=== PATIENT | female | born 1930 | race Caucasian/White ===

== ENCOUNTER → 2016-03-18 | Outpatient (CLI) | payer MEDICARE, BC ==
[~2016-03-18] VITALS: Ht 152.4 cm; Wt 77.6 kg
[~2016-03-18] MED LIST: AGGRENOX ER 251 CER PO; ALLERGY RELIEF10 MG PO; ASPI325T6 PO; ASPIRIN E.C. 8181 MG PO; CALCIUM600 M1 PO; CATAPRES0.2 MG PO; CLONIDINE0.1 MG PO; CO Q-10 100 MG-1 SGL PO; CRESTOR 10MG10 MG PO; CRESTOR20 MG PO; CRESTOR40 MG PO; FISH OIL 1000MG1 CAP PO; FISH OIL O1600 MG/5 PO; FISH OIL PO; FUROSEMIDE20 MG PO; GARLIC SUPPLEM300 MG PO; GARLIQUE PO; ISOPTO TEARS OU; K-LOR CON PO; K-TAB20 PO; KLOR-CON M2020 MEQ PO; LEVEMIR100 U/ML SC; LISINOPRIL20 MG PO; LOPRESSOR100 MG PO; MAGNESIUM500 MG PO; METAMUCIL1 PDR PO; METOPROLOL PO; MUCINEX 60600 MG/TA1 PO; MULTIPLE VITAMI1 CAP PO; NASONEX SPRAY17 GM NS; NASONEX0.05 MG/AC NS; NEURONTIN100 MG/CAP PO; NIFEDIPINE90 MG PO; NITROQUICK0.4 MG SL; NOVOLOG; NOVOLOG FLEX100 U/ML SQ; PLAVIX 75MG TAB75 MG PO; PRINIVIL40 MG PO; PROBIOTIC FORMU1 CAP PO; RANEXA 500MG T500 MG PO; REFRESH 1 ML1 ML; SYNTHROID0.1 MG PO; TYLENOL W/COD1 UDTAB PO; VITAMIN C BUFF500 MG PO; VITAMIN C500 MG PO; VITAMIN D1000 IU PO; VITAMIN D31000 IU PO; VITAMIN D32000 I1 PO; [UNRECOGNIZED DRUG - OTHER] PO; [UNRECOGNIZED DRUG - REMARK] PO
[2016-03-18 11:07] VITALS: BP 142/52; PULSE 80
[2016-03-18 11:37] VITALS: BP 142/52; PULSE 80
== END ==
LOC: LIGHT 11:05
DX: E11.9 Type 2 diabetes mellitus without complications (principal); E78.4 Other hyperlipidemia; E66.09 Other obesity due to excess calories; Z68.33 Body mass index [BMI] 33.0-33.9, adult; I10 Essential (primary) hypertension

== ENCOUNTER 2016-04-02 12:07 | Inpatient (IN) | payer MEDICARE, BC ==
[~2016-04-02] VITALS: Ht 152.4 cm; Wt 78.4 kg
[~2016-04-02 12:07] MED LIST changes: -AGGRENOX ER 251 CER PO; -ASPI325T6 PO; -RANEXA 500MG T500 MG PO
[2016-04-02 12:45] LABS: BASO # 0.1 (0.0-0.2); BASO % 0.4 % (0.0-2.0); EOS # 0.2 (0.0-0.7); EOS % 1.8 % (0-4.0); GRAN # 10.6 (1.4-6.5); GRAN % 83.8 % (42.2-75.2); HEMATOCRIT 40.3 % (37.0-47.0); HEMOGLOBIN 13.7 g/dl (12.5-16.0); LYMPH # 1.2 (1.2-3.4); LYMPH % 9.3 % (20.0-51.0); MEAN CELL VOLUME 84 fl (80.0-100.0); MEAN CORPUSCULAR HEMOGLOBIN 28 pg (27.0-31.0); MEAN CORPUSCULAR HGB CONC 34 g/dl (33.0-37.0); MEAN PLATELET VOLUME 9.9 fl (7.4-10.4); MONO # 0.6 (0.1-0.6); MONO % 4.4 % (1.7-9.3); PLATELET COUNT 263 K/mm3 (130-400); RED BLOOD COUNT 4.82 M/mm3 (4.10-5.30); REDCELL DISTRIBUTION WIDTH-CV 14.6 % (11.5-14.5); WHITE BLOOD COUNT 12.6 K/mm3 (4.8-10.8)
[2016-04-02 12:58] LABS: ANION GAP 12 mmol/L (7-16); BLOOD UREA NITROGEN 20 mg/dL (7-17); CALCIUM 9.8 mg/dL (8.4-10.2); CARBON DIOXIDE 26 mmol/L (22-30); CHLORIDE 92 mmol/L (98-107); CREATININE, serum 0.76 mg/dL (0.52-1.25); GLUCOSE 58 mg/dL (74-106); POTASSIUM 4.8 mmol/L (3.4-5.0); SODIUM 130 mmol/L (137-145)
[2016-04-02 13:12] LABS: TROPONIN-I < 0.012 ng/mL (0.000-0.034)
[2016-04-02 16:22] LABS: INR 1.1 (0.8-3.0); PROTHROMBIN TIME 12.1 SECONDS (9.7-12.8)
[2016-04-02 16:29] LABS: MAGNESIUM 1.9 mg/dL (1.6-2.3); PHOSPHOROUS 4.2 mg/dL (2.5-4.5)
[2016-04-02 17:01] LABS: THYROID STIMULATING HORMONE 0.323 uIU/mL (0.465-4.680)
[2016-04-02 18:31] VITALS: BP 179/54; PULSE 72; TEMP 98
[2016-04-02 20:08] VITALS: BP 154/48; PULSE 72; TEMP 98.5
[2016-04-02 23:06] VITALS: BP 167/49; PULSE 69; TEMP 98.7
[2016-04-03 03:53] VITALS: BP 153/60; PULSE 73; TEMP 97.4
[2016-04-03 08:37] VITALS: BP 177/44; PULSE 72; TEMP 97.2
[2016-04-03 08:51] LABS: BASO % 0.5 % (0.0-2.0); EOS # 0.3 (0.0-0.7); EOS % 3.5 % (0-4.0); GRAN # 5.9 (1.4-6.5); GRAN % 70.8 % (42.2-75.2); HEMATOCRIT 38.1 % (37.0-47.0); HEMOGLOBIN 12.8 g/dl (12.5-16.0); LYMPH # 1.3 (1.2-3.4); LYMPH % 15.1 % (20.0-51.0); MEAN CELL VOLUME 84 fl (80.0-100.0); MEAN CORPUSCULAR HEMOGLOBIN 28 pg (27.0-31.0); MEAN CORPUSCULAR HGB CONC 34 g/dl (33.0-37.0); MEAN PLATELET VOLUME 9.9 fl (7.4-10.4); MONO # 0.8 (0.1-0.6); MONO % 9.9 % (1.7-9.3); PLATELET COUNT 242 K/mm3 (130-400); RED BLOOD COUNT 4.54 M/mm3 (4.10-5.30); REDCELL DISTRIBUTION WIDTH-CV 14.7 % (11.5-14.5); WHITE BLOOD COUNT 8.3 K/mm3 (4.8-10.8)
[2016-04-03 09:37] LABS: CALCIUM 9.2 mg/dL (8.4-10.2); CREATININE, serum 0.77 mg/dL (0.52-1.25); POTASSIUM 3.9 mmol/L (3.4-5.0)
[2016-04-03 11:21] VITALS: BP 185/62; PULSE 88; TEMP 97.6
[2016-04-03 12:35] LABS: PH 6 (5-8); SQUAMOUS EPITHELIAL 0-2 /hpf; URINE APPEARANCE Hazy; URINE BACTERIA None Seen /hpf; URINE BILIRUBIN Negative (NEGATIVE); URINE BLOOD Negative (NEGATIVE); URINE COLOR Yellow; URINE GLUCOSE 3+ (NEGATIVE); URINE KETONE 1+ (NEGATIVE); URINE RBC 0-2 /hpf; URINE UROBILINOGEN Negative (NEGATIVE)
[2016-04-03 17:00] VITALS: BP 188/63; PULSE 97; TEMP 99.2
[2016-04-03 19:56] VITALS: BP 158/67; PULSE 84; TEMP 97.8
[2016-04-03 23:58] VITALS: BP 143/73; PULSE 81; TEMP 97.5
[2016-04-04 03:10] VITALS: BP 158/91; PULSE 93; TEMP 97.8
[2016-04-04 08:49] VITALS: BP 186/64; PULSE 86; TEMP 99.9
[2016-04-04] MEDS ORDERED: PLAVIX 75MG TAB75 MG PO (11:17)
[2016-04-04] MEDS ORDERED: LEVEMIR100 U/ML SC (11:18)
[2016-05-13] MEDS ORDERED: ASPI325T6 PO (11:18)
[2016-05-13] MEDS ORDERED: RANEXA 500MG T500 MG PO (11:19)
[2016-09-16] MEDS ORDERED: AGGRENOX ER 251 CER PO (10:54)
== END 2016-04-04 12:36 | disposition home or self-care (01) | DRG 65 ==
LOC: COL.ER 12:07 → MEDICAL 13:43
PROVIDERS: Emergency Medicine; Internal Medicine; Physician Assistant
DX: I63.342 Cerebral infarction due to thrombosis of left cerebellar artery (principal); I50.22 Chronic systolic (congestive) heart failure; E87.1 Hypo-osmolality and hyponatremia; I11.0 Hypertensive heart disease with heart failure; E11.649 Type 2 diabetes mellitus with hypoglycemia without coma; I25.10 Atherosclerotic heart disease of native coronary artery without angina pectoris; Z79.4 Long term (current) use of insulin; R47.01 Aphasia; R29.810 Facial weakness; R47.1 Dysarthria and anarthria; Z95.5 Presence of coronary angioplasty implant and graft; Z87.891 Personal history of nicotine dependence
CPT/HCPCS: 99222-AI; 99232-AI; 99239; A9585; J1650; J1815; J7030

== ENCOUNTER → 2016-04-08 | Outpatient (CLI) | payer MEDICARE, BC ==
[~2016-04-08] MED LIST changes: +AGGRENOX ER 251 CER PO; +ASPI325T6 PO; +RANEXA 500MG T500 MG PO
== END ==
LOC: COL.CARD 12:50
DX: R47.01 Aphasia (principal)

== ENCOUNTER → 2016-05-13 | Outpatient (CLI) | payer MEDICARE, BC ==
[~2016-05-13] VITALS: Ht 152.4 cm; Wt 77.1 kg
[2016-05-13 11:20] VITALS: BP 160/72; PULSE 64
== END ==
LOC: LIGHT 11:15
DX: E11.9 Type 2 diabetes mellitus without complications (principal); I10 Essential (primary) hypertension; E78.4 Other hyperlipidemia; E66.01 Morbid (severe) obesity due to excess calories; Z68.33 Body mass index [BMI] 33.0-33.9, adult

== ENCOUNTER → 2016-07-15 | Outpatient (CLI) | payer MEDICARE, BC ==
[~2016-07-15] VITALS: Ht 152.4 cm; Wt 76.7 kg
[2016-07-15 10:53] VITALS: BP 140/60; PULSE 68
== END ==
LOC: LIGHT 10:35
DX: E11.9 Type 2 diabetes mellitus without complications (principal); E78.5 Hyperlipidemia, unspecified; E66.9 Obesity, unspecified; Z68.33 Body mass index [BMI] 33.0-33.9, adult; Z71.3 Dietary counseling and surveillance; I10 Essential (primary) hypertension

== ENCOUNTER → 2016-09-16 | Outpatient (CLI) | payer MEDICARE, BC ==
[~2016-09-16] VITALS: Ht 152.4 cm; Wt 75.5 kg
[2016-09-16 10:56] VITALS: BP 130/50; PULSE 64
== END ==
LOC: LIGHT 10:06
DX: E11.9 Type 2 diabetes mellitus without complications (principal); E78.5 Hyperlipidemia, unspecified; E66.9 Obesity, unspecified; Z68.32 Body mass index [BMI] 32.0-32.9, adult; Z71.3 Dietary counseling and surveillance; I10 Essential (primary) hypertension

== ENCOUNTER → 2016-11-25 | Outpatient (CLI) | payer MEDICARE, BC ==
[~2016-11-25] VITALS: Ht 152.4 cm; Wt 74.6 kg
[2016-11-25 13:49] VITALS: BP 120/70; PULSE 80
== END ==
LOC: LIGHT 09:54
DX: E11.9 Type 2 diabetes mellitus without complications (principal); E78.5 Hyperlipidemia, unspecified; E66.9 Obesity, unspecified; Z68.32 Body mass index [BMI] 32.0-32.9, adult; Z71.3 Dietary counseling and surveillance; I10 Essential (primary) hypertension

== ENCOUNTER → 2017-02-03 | Outpatient (CLI) | payer MEDICARE, BC ==
[~2017-02-03] VITALS: Ht 152.4 cm; Wt 74.6 kg
[2017-02-03 16:37] VITALS: BP 180/70; PULSE 76
== END ==
LOC: LIGHT 11:03
DX: E11.9 Type 2 diabetes mellitus without complications (principal); E78.5 Hyperlipidemia, unspecified; E66.9 Obesity, unspecified; Z68.32 Body mass index [BMI] 32.0-32.9, adult; Z71.3 Dietary counseling and surveillance; I10 Essential (primary) hypertension

== ENCOUNTER → 2017-04-28 | Outpatient (CLI) | payer MEDICARE, BC ==
[~2017-04-28] VITALS: Ht 152.4 cm; Wt 75.3 kg
[~2017-04-28] MED LIST changes: +ASPIRIN 81M81 MG/TA2 PO; +FLONASE NASAL S16 GM NS; +LASIX 40MG TABL40 MG PO; +LEVEMIR FLEX100 U/ML SQ; +LOPRESSOR 550 MG/TAB PO; -LOPRESSOR100 MG PO; +NAPROSYN500 MG PO; -NEURONTIN100 MG/CAP PO; +NEURONTIN300 MG/CAP PO; +NYSTATIN POWDER30 GM TOP; +TRIAM OI 0.1 80 TOP
[2017-04-28 11:05] VITALS: BP 160/62; PULSE 80
== END ==
LOC: LIGHT 08:57
DX: E11.9 Type 2 diabetes mellitus without complications (principal); E78.5 Hyperlipidemia, unspecified; E66.9 Obesity, unspecified; Z68.32 Body mass index [BMI] 32.0-32.9, adult; Z71.3 Dietary counseling and surveillance; I10 Essential (primary) hypertension
CPT/HCPCS: G0463

== ENCOUNTER 2017-05-10 13:46 | Inpatient (IN) | payer MEDICARE, BC ==
[~2017-05-10] VITALS: Ht 152.4 cm; Wt 88.9 kg
[~2017-05-10 13:46] MED LIST changes: -CO Q-10 100 MG-1 SGL PO; +THE MEDICINE S200 M2 PO
[2017-05-10 14:22] LABS: MEAN CELL VOLUME 86 fl (80.0-100.0); MEAN CORPUSCULAR HGB CONC 34 g/dl (33.0-37.0); MEAN PLATELET VOLUME 9.8 fl (7.4-10.4); PLATELET COUNT 204 K/mm3 (130-400); RED BLOOD COUNT 4.08 M/mm3 (4.10-5.30); REDCELL DISTRIBUTION WIDTH-CV 15.8 % (11.5-14.5)
[2017-05-10 14:24] LABS: HEMOGLOBIN 11.9 g/dl (12.5-16.0); MEAN CORPUSCULAR HEMOGLOBIN 29 pg (27.0-31.0)
[2017-05-10 14:38] LABS: ALBUMIN 3.7 gm/dL (3.5-5.0); BILIRUBIN,TOTAL 0.7 mg/dL (0.0-1.0); C-REACTIVE PROTEIN 3.5 mg/dL (0.0-0.9); CALCIUM 8.5 mg/dL (8.4-10.2); CREATININE, serum 0.68 mg/dL (0.52-1.25); POTASSIUM 3.9 mmol/L (3.4-5.0); TOTAL PROTEIN 6.4 gm/dL (6.4-8.2)
[2017-05-10 14:46] LABS: TROPONIN-I 0.025 ng/mL (0.000-0.034)
[2017-05-10 14:58] LABS: BAND 9 % (0-10); LYMPHOCYTE 5 % (20.0-51.0); NEUTROPHILS 82 % (42.0-75.2); PLATELET ESTIMATE NORMAL (NORMAL)
[2017-05-10 15:18] LABS: COLLECTION METHOD CATHETER
[2017-05-10 15:30] LABS: PH 7 (5-8); SQUAMOUS EPITHELIAL None Seen /hpf; URINE APPEARANCE Hazy; URINE BACTERIA None Seen /hpf; URINE BILIRUBIN Negative (NEGATIVE); URINE BLOOD Negative (NEGATIVE); URINE COLOR Yellow; URINE GLUCOSE Negative (NEGATIVE); URINE KETONE Negative (NEGATIVE); URINE LEUKOCYTE ESTERASE Negative (NEGATIVE); URINE NITRATE Negative (NEGATIVE); URINE PROTEIN(semi-quant) 2+ (NEGATIVE); URINE UROBILINOGEN Negative (NEGATIVE)
[2017-05-10 18:36] VITALS: BP 116/45; PULSE 86; TEMP 98.4
[2017-05-10 18:39] VITALS: BP 116/45; PULSE 86; TEMP 98.4
[2017-05-10 23:29] VITALS: BP 115/42; PULSE 64; TEMP 98.2
[2017-05-11] VITALS (7 sets, daily range): BP systolic 96–183; BP diastolic 20–96; PULSE 65–91; TEMP 97.5–99.1
[2017-05-11] MEDS ORDERED: REFRESH TEARS 330 ML OP (00:05)
[2017-05-11 06:26] LABS: MEAN CELL VOLUME 87 fl (80.0-100.0); MEAN CORPUSCULAR HGB CONC 33 g/dl (33.0-37.0); MEAN PLATELET VOLUME 10.2 fl (7.4-10.4); PLATELET COUNT 199 K/mm3 (130-400); RED BLOOD COUNT 4.02 M/mm3 (4.10-5.30); REDCELL DISTRIBUTION WIDTH-CV 16.2 % (11.5-14.5)
[2017-05-11 06:28] LABS: HEMATOCRIT 34.8 % (37.0-47.0); HEMOGLOBIN 11.6 g/dl (12.5-16.0); MEAN CORPUSCULAR HEMOGLOBIN 29 pg (27.0-31.0)
[2017-05-11 06:39] LABS: CALCIUM 8.2 mg/dL (8.4-10.2); CREATININE, serum 0.91 mg/dL (0.52-1.25); MAGNESIUM 1.9 mg/dL (1.6-2.3)
[2017-05-11 07:46] LABS: ANISOCYTOSIS 1+; BAND 26 % (0-10); LYMPHOCYTE 5 % (20.0-51.0); NEUTROPHILS 68 % (42.0-75.2); PLATELET ESTIMATE NORMAL (NORMAL)
[2017-05-12] VITALS (8 sets, daily range): BP systolic 121–192; BP diastolic 55–92; PULSE 56–92; TEMP 97.2–98.7
[2017-05-12 06:43] LABS: MEAN CELL VOLUME 87 fl (80.0-100.0); MEAN CORPUSCULAR HGB CONC 34 g/dl (33.0-37.0); PLATELET COUNT 182 K/mm3 (130-400); RED BLOOD COUNT 3.73 M/mm3 (4.10-5.30)
[2017-05-12 06:49] LABS: CALCIUM 8.4 mg/dL (8.4-10.2); CREATININE, serum 0.73 mg/dL (0.52-1.25); POTASSIUM 3.5 mmol/L (3.4-5.0)
[2017-05-12 06:50] LABS: HEMATOCRIT 32.3 % (37.0-47.0); HEMOGLOBIN 10.9 g/dl (12.5-16.0); MEAN CORPUSCULAR HEMOGLOBIN 29 pg (27.0-31.0)
[2017-05-12 07:12] LABS: VANCOMYCIN TROUGH 8.73 ug/mL (7.00-20.00)
[2017-05-12 07:30] LABS: ANISOCYTOSIS 1+; BAND 11 % (0-10); BASOPHIL 1 % (0-2); HYPOCHROMIA 1+; LYMPHOCYTE 9 % (20.0-51.0); NEUTROPHILS 79 % (42.0-75.2); OVALOCYTES 1+; PLATELET ESTIMATE NORMAL (NORMAL)
[2017-05-12 12:31] LABS: ARTERIAL BLD GAS O2 SATURATION 94.7 % (92-100); ARTERIAL BLD GAS TCO2 CT 26.5; ARTERIAL BLOOD GAS BASE EXCESS 0.4 (-2-2); ARTERIAL BLOOD GAS HCO3 25.2 meq/L (22-26); ARTERIAL BLOOD GAS PCO2 41.4 mmHg (35-45); ARTERIAL BLOOD GAS PO2 75.3 mmHg (80-100)
[2017-05-13] VITALS (11 sets, daily range): BP systolic 132–209; BP diastolic 58–100; PULSE 71–142; TEMP 97.6–98.7; O2SAT 96–97
[2017-05-13 06:38] LABS: HEMOGLOBIN 12.3 g/dl (12.5-16.0); MEAN CELL VOLUME 85 fl (80.0-100.0); MEAN CORPUSCULAR HEMOGLOBIN 28 pg (27.0-31.0); MEAN CORPUSCULAR HGB CONC 33 g/dl (33.0-37.0); MEAN PLATELET VOLUME 10.1 fl (7.4-10.4); PLATELET COUNT 202 K/mm3 (130-400); RED BLOOD COUNT 4.35 M/mm3 (4.10-5.30); REDCELL DISTRIBUTION WIDTH-CV 15.6 % (11.5-14.5)
[2017-05-13 07:01] LABS: CALCIUM 8.8 mg/dL (8.4-10.2); CREATININE, serum 0.57 mg/dL (0.52-1.25)
[2017-05-13 07:24] LABS: TROPONIN-I 0.07 ng/mL (0.000-0.034)
[2017-05-13 07:41] LABS: LYMPHOCYTE 9 % (20.0-51.0); NEUTROPHILS 88 % (42.0-75.2); PLATELET ESTIMATE NORMAL (NORMAL)
[2017-05-13 07:44] LABS: ANISOCYTOSIS 1+
[2017-05-13 10:30] LABS: ARTERIAL BLD GAS O2 SATURATION 96.4 % (92-100); ARTERIAL BLD GAS TCO2 CT 25.6; ARTERIAL BLOOD GAS BASE EXCESS 1.4 (-2-2); ARTERIAL BLOOD GAS HCO3 24.5 meq/L (22-26); ARTERIAL BLOOD GAS PO2 84.4 mmHg (80-100); ARTERIAL BLOOD GAS pH 7.48 (7.35-7.45)
[2017-05-14] VITALS (458 sets, daily range): BP systolic 121–175; BP diastolic 65–124; PULSE 71–111; TEMP 97.5–98.8; O2SAT 76–100
[2017-05-14 05:33] LABS: MEAN CELL VOLUME 86 fl (80.0-100.0); MEAN CORPUSCULAR HGB CONC 34 g/dl (33.0-37.0); MEAN PLATELET VOLUME 10.4 fl (7.4-10.4); PLATELET COUNT 207 K/mm3 (130-400); RED BLOOD COUNT 3.89 M/mm3 (4.10-5.30); REDCELL DISTRIBUTION WIDTH-CV 15.8 % (11.5-14.5)
[2017-05-14 05:38] LABS: HEMATOCRIT 33.3 % (37.0-47.0); HEMOGLOBIN 11.2 g/dl (12.5-16.0); MEAN CORPUSCULAR HEMOGLOBIN 29 pg (27.0-31.0)
[2017-05-14 05:49] LABS: CALCIUM 8.5 mg/dL (8.4-10.2); CREATININE, serum 0.65 mg/dL (0.52-1.25); POTASSIUM 3.6 mmol/L (3.4-5.0)
[2017-05-14 06:37] LABS: BAND 6 % (0-10); LYMPHOCYTE 12 % (20.0-51.0); METAMYELOCYTE 1 % (0-0); NEUTROPHILS 80 % (42.0-75.2); PLATELET ESTIMATE NORMAL (NORMAL)
[2017-05-15 05:00] VITALS: BP 144/98; PULSE 100; TEMP 98.6
[2017-05-15 07:10] LABS: MEAN CELL VOLUME 86 fl (80.0-100.0); MEAN CORPUSCULAR HGB CONC 33 g/dl (33.0-37.0); MEAN PLATELET VOLUME 10.4 fl (7.4-10.4); PLATELET COUNT 260 K/mm3 (130-400); RED BLOOD COUNT 4.14 M/mm3 (4.10-5.30); REDCELL DISTRIBUTION WIDTH-CV 15.9 % (11.5-14.5)
[2017-05-15 07:13] LABS: HEMATOCRIT 35.6 % (37.0-47.0); HEMOGLOBIN 11.8 g/dl (12.5-16.0); MEAN CORPUSCULAR HEMOGLOBIN 29 pg (27.0-31.0)
[2017-05-15 07:19] LABS: CALCIUM 8.7 mg/dL (8.4-10.2); CREATININE, serum 0.67 mg/dL (0.52-1.25); POTASSIUM 3.4 mmol/L (3.4-5.0)
[2017-05-15 07:40] VITALS: BP 174/79; PULSE 51; TEMP 98.5
[2017-05-15 07:48] LABS: BAND 6 % (0-10); LYMPHOCYTE 12 % (20.0-51.0); NEUTROPHILS 81 % (42.0-75.2); PLATELET ESTIMATE NORMAL (NORMAL)
[2017-05-15 12:32] VITALS: BP 126/54; PULSE 84; TEMP 98.4
[2017-05-15 16:04] VITALS: BP 131/45; PULSE 117; TEMP 98.3
[2017-05-15 20:25] VITALS: BP 153/76; PULSE 113; TEMP 97.4
[2017-05-16] VITALS (7 sets, daily range): BP systolic 102–162; BP diastolic 63–89; PULSE 89–110; TEMP 96.1–98.2
[2017-05-16 06:54] LABS: CALCIUM 8.2 mg/dL (8.4-10.2); CREATININE, serum 0.66 mg/dL (0.52-1.25); POTASSIUM 3.6 mmol/L (3.4-5.0)
[2017-05-16 07:51] LABS: MEAN CELL VOLUME 86 fl (80.0-100.0); MEAN CORPUSCULAR HGB CONC 33 g/dl (33.0-37.0); MEAN PLATELET VOLUME 10.1 fl (7.4-10.4); PLATELET COUNT 271 K/mm3 (130-400); RED BLOOD COUNT 2.94 M/mm3 (4.10-5.30); REDCELL DISTRIBUTION WIDTH-CV 15.9 % (11.5-14.5)
[2017-05-16 07:54] LABS: HEMATOCRIT 25.3 % (37.0-47.0); HEMOGLOBIN 8.3 g/dl (12.5-16.0); MEAN CORPUSCULAR HEMOGLOBIN 28 pg (27.0-31.0)
[2017-05-16 08:36] LABS: BAND 2 % (0-10); LYMPHOCYTE 9 % (20.0-51.0); NEUTROPHILS 88 % (42.0-75.2)
[2017-05-16 08:37] LABS: HYPOCHROMIA 1+; PLATELET ESTIMATE NORMAL (NORMAL)
[2017-05-16 16:20] LABS: HEMATOCRIT 22.8 % (37.0-47.0); HEMOGLOBIN 7.5 g/dl (12.5-16.0)
[2017-05-17] VITALS (172 sets, daily range): BP systolic 94–160; BP diastolic 55–95; PULSE 88–122; TEMP 97–98.4; O2SAT 74–100
[2017-05-17 06:27] LABS: MEAN CELL VOLUME 88 fl (80.0-100.0); MEAN CORPUSCULAR HGB CONC 32 g/dl (33.0-37.0); MEAN PLATELET VOLUME 10.4 fl (7.4-10.4); PLATELET COUNT 300 K/mm3 (130-400); RED BLOOD COUNT 2.14 M/mm3 (4.10-5.30); REDCELL DISTRIBUTION WIDTH-CV 16.3 % (11.5-14.5)
[2017-05-17 06:42] LABS: HEMATOCRIT 18.8 % (37.0-47.0); HEMOGLOBIN 6.1 g/dl (12.5-16.0); MEAN CORPUSCULAR HEMOGLOBIN 29 pg (27.0-31.0)
[2017-05-17 06:49] LABS: CALCIUM 8.4 mg/dL (8.4-10.2); CREATININE, serum 0.83 mg/dL (0.52-1.25); POTASSIUM 3.8 mmol/L (3.4-5.0)
[2017-05-17 07:35] LABS: ANISOCYTOSIS 1+; BAND 1 % (0-10); LYMPHOCYTE 20 % (20.0-51.0); METAMYELOCYTE 2 % (0-0); MYELOCYTE 2 % (0-0); NEUTROPHILS 74 % (42.0-75.2); PLATELET ESTIMATE NORMAL (NORMAL)
[2017-05-17 16:18] LABS: HEMATOCRIT 21.5 % (37.0-47.0)
[2017-05-18] VITALS (571 sets, daily range): BP systolic 103–148; BP diastolic 56–103; PULSE 85–107; TEMP 96.8–98; O2SAT 83–100
[2017-05-18 00:10] LABS: HEMATOCRIT 26.4 % (37.0-47.0); HEMOGLOBIN 8.9 g/dl (12.5-16.0)
[2017-05-18 05:36] LABS: MEAN CORPUSCULAR HGB CONC 33 g/dl (33.0-37.0); MEAN PLATELET VOLUME 10.4 fl (7.4-10.4); PLATELET COUNT 227 K/mm3 (130-400); RED BLOOD COUNT 3.05 M/mm3 (4.10-5.30); REDCELL DISTRIBUTION WIDTH-CV 17.2 % (11.5-14.5)
[2017-05-18 05:40] LABS: INR 1.1 (0.8-3.0); PROTHROMBIN TIME 12.8 SECONDS (9.7-12.8)
[2017-05-18 05:42] LABS: HEMATOCRIT 25.3 % (37.0-47.0); HEMOGLOBIN 8.4 g/dl (12.5-16.0); MEAN CELL VOLUME 83 fl (80.0-100.0); MEAN CORPUSCULAR HEMOGLOBIN 28 pg (27.0-31.0)
[2017-05-18 05:44] LABS: CALCIUM 8.2 mg/dL (8.4-10.2); CREATININE, serum 0.81 mg/dL (0.52-1.25); POTASSIUM 3.8 mmol/L (3.4-5.0)
[2017-05-18 06:20] LABS: BAND 1 % (0-10); LYMPHOCYTE 9 % (20.0-51.0); NEUTROPHILS 89 % (42.0-75.2); PLATELET ESTIMATE NORMAL (NORMAL)
[2017-05-18 06:21] LABS: ANISOCYTOSIS 1+; HYPOCHROMIA 2+; POLYCHROMASIA 1+
[2017-05-18 12:08] LABS: HEMATOCRIT 25.3 % (37.0-47.0); HEMOGLOBIN 8.5 g/dl (12.5-16.0)
[2017-05-18 18:05] LABS: HEMOGLOBIN 8.3 g/dl (12.5-16.0)
[2017-05-19] VITALS (604 sets, daily range): BP systolic 112–158; BP diastolic 46–81; PULSE 61–112; TEMP 96.8–98.2; O2SAT 67–100
[2017-05-19 05:33] LABS: HEMATOCRIT 24.2 % (37.0-47.0); HEMOGLOBIN 7.9 g/dl (12.5-16.0)
[2017-05-19 07:15] LABS: HEMATOCRIT 24.3 % (37.0-47.0); HEMOGLOBIN 7.9 g/dl (12.5-16.0); MEAN CELL VOLUME 86 fl (80.0-100.0); MEAN CORPUSCULAR HEMOGLOBIN 28 pg (27.0-31.0); MEAN CORPUSCULAR HGB CONC 33 g/dl (33.0-37.0); MEAN PLATELET VOLUME 10.2 fl (7.4-10.4); PLATELET COUNT 235 K/mm3 (130-400); RED BLOOD COUNT 2.84 M/mm3 (4.10-5.30); REDCELL DISTRIBUTION WIDTH-CV 17.4 % (11.5-14.5)
[2017-05-19 07:22] LABS: CALCIUM 8.2 mg/dL (8.4-10.2); CREATININE, serum 0.76 mg/dL (0.52-1.25); MAGNESIUM 2.1 mg/dL (1.6-2.3); POTASSIUM 3.6 mmol/L (3.4-5.0)
[2017-05-19 08:14] LABS: BAND 5 % (0-10); EOSINOPHIL 1 % (0-4); LYMPHOCYTE 9 % (20.0-51.0); NEUTROPHILS 81 % (42.0-75.2)
[2017-05-19 08:15] LABS: ANISOCYTOSIS 1+; PLATELET ESTIMATE NORMAL (NORMAL); POLYCHROMASIA 1+; TOXIC GRANULATION PRESENT
[2017-05-19 11:20] LABS: HEMATOCRIT 24.4 % (37.0-47.0)
[2017-05-19 17:42] LABS: HEMATOCRIT 25.4 % (37.0-47.0); HEMOGLOBIN 8.2 g/dl (12.5-16.0)
[2017-05-19 23:35] LABS: HEMATOCRIT 24.2 % (37.0-47.0)
[2017-05-20 03:58] VITALS: BP 140/55; PULSE 81; TEMP 97.7
[2017-05-20 08:25] VITALS: BP 137/69; PULSE 100; TEMP 98.1
[2017-05-20 08:49] LABS: HEMATOCRIT 26.2 % (37.0-47.0); HEMOGLOBIN 8.3 g/dl (12.5-16.0); MEAN CELL VOLUME 88 fl (80.0-100.0); MEAN CORPUSCULAR HEMOGLOBIN 28 pg (27.0-31.0); MEAN CORPUSCULAR HGB CONC 32 g/dl (33.0-37.0); MEAN PLATELET VOLUME 10.1 fl (7.4-10.4); PLATELET COUNT 286 K/mm3 (130-400); RED BLOOD COUNT 2.97 M/mm3 (4.10-5.30); REDCELL DISTRIBUTION WIDTH-CV 17.8 % (11.5-14.5)
[2017-05-20 09:08] LABS: BAND 1 % (0-10); HYPOCHROMIA 2+; LYMPHOCYTE 12 % (20.0-51.0); NEUTROPHILS 85 % (42.0-75.2); PLATELET ESTIMATE NORMAL (NORMAL)
[2017-05-20 09:09] LABS: CALCIUM 8.3 mg/dL (8.4-10.2); CREATININE, serum 0.7 mg/dL (0.52-1.25); POTASSIUM 4.5 mmol/L (3.4-5.0)
[2017-05-20 09:09] LABS: ANISOCYTOSIS 1+
[2017-05-20] MEDS ORDERED: CARDIZEM CD 12120 MG PO (10:38)
[2017-05-20] MEDS ORDERED: TYLENOL 325MG325 MG PO (10:39)
[2017-05-20] MEDS ORDERED: MEDROL 4MG DOSPA4 MG PO (10:41)
[2017-05-20 12:06] VITALS: BP 156/54; PULSE 101; TEMP 97.9
== END 2017-05-20 13:52 | DRG 871 ==
LOC: COL.ER 13:46 → MEDICAL 16:06 → ICU 05-13 11:24 → MEDICAL 05-13 11:24 → ICU 05-13 11:24 → MEDICAL 05-14 14:57 → ICU 05-14 14:57 → MEDICAL 05-14 14:57 → ICU 05-17 16:25 → MEDICAL 05-19 15:24
PROVIDERS: Emergency Medicine; Family Medicine; Internal Medicine; Internal Medicine Pulmonary Disease; Nurse Practitioner Family; Physician Assistant; Surgery
PROC: 02HV33Z Insertion of Infusion Device into Superior Vena Cava, Percutaneous Approach (ICD-10-PCS; principal; 2017-05-17)
DX: A41.89 Other specified sepsis (principal); I50.23 Acute on chronic systolic (congestive) heart failure; J12.3 Human metapneumovirus pneumonia; G93.40 Encephalopathy, unspecified; I21.A1 Myocardial infarction type 2; L03.311 Cellulitis of abdominal wall; D62 Acute posthemorrhagic anemia; E87.1 Hypo-osmolality and hyponatremia; K62.5 Hemorrhage of anus and rectum; I47.1 Supraventricular tachycardia; I11.0 Hypertensive heart disease with heart failure; E11.649 Type 2 diabetes mellitus with hypoglycemia without coma; B37.2 Candidiasis of skin and nail; I25.10 Atherosclerotic heart disease of native coronary artery without angina pectoris; Z95.5 Presence of coronary angioplasty implant and graft; Z87.891 Personal history of nicotine dependence; Z79.4 Long term (current) use of insulin; M79.3 Panniculitis, unspecified; E87.6 Hypokalemia; J44.9 Chronic obstructive pulmonary disease, unspecified
CPT/HCPCS: 99223-AI; 99232-AI; 99233-AI; 99239; A4314; A9284; C1751; J0360; J0456; J0696; J1450; J1650; J1815; J1940; J2270; J2543; J2920; J3370; J7030; J7050; J7512; P9016; Q9967

== ENCOUNTER → 2017-05-27 | Outpatient (REF) ==
[~2017-05-27] MED LIST changes: +CARDIZEM CD 12120 MG PO; +MEDROL 4MG DOSPA4 MG PO; +REFRESH TEARS 330 ML OP; +TYLENOL 325MG325 MG PO
[2017-05-27 08:52] LABS: HEMATOCRIT 34.2 % (37.0-47.0); MEAN CELL VOLUME 91 fl (80.0-100.0); MEAN CORPUSCULAR HEMOGLOBIN 29 pg (27.0-31.0); MEAN CORPUSCULAR HGB CONC 32 g/dl (33.0-37.0); MEAN PLATELET VOLUME 9.7 fl (7.4-10.4); PLATELET COUNT 326 K/mm3 (130-400); RED BLOOD COUNT 3.76 M/mm3 (4.10-5.30); REDCELL DISTRIBUTION WIDTH-CV 21.9 % (11.5-14.5)
[2017-05-27 09:23] LABS: BAND 4 % (0-10); EOSINOPHIL 1 % (0-4); HYPOCHROMIA 1+; LYMPHOCYTE 10 % (20.0-51.0); NEUTROPHILS 80 % (42.0-75.2); PLATELET ESTIMATE NORMAL (NORMAL)
[2017-05-27 09:25] LABS: OVALOCYTES 1+; POIKILOCYTOSIS 1+
== END ==
LOC: ZCOL.LAB 08:45
PROVIDERS: Internal Medicine
DX: D64.9 Anemia, unspecified (principal); D72.829 Elevated white blood cell count, unspecified; E87.6 Hypokalemia; B97.81 Human metapneumovirus as the cause of diseases classified elsewhere

== ENCOUNTER → 2017-06-07 | Outpatient (CLI) | payer MEDICARE, BC | LOC: COL.RAD 10:48 | DX: Z09 Encounter for follow-up examination after completed treatment for conditions other than malignant neoplasm (principal); J84.9 Interstitial pulmonary disease, unspecified ==

== ENCOUNTER 2017-06-15 17:00 | Emergency (ER) | payer MEDICARE, BC ==
[~2017-06-15] VITALS: Ht 152.4 cm; Wt 86.4 kg
[2017-06-15 17:03] VITALS: TEMP 97.2
[2017-06-15 17:22] LABS: HEMATOCRIT 39.5 % (37.0-47.0); MEAN CELL VOLUME 97 fl (80.0-100.0); MEAN CORPUSCULAR HEMOGLOBIN 29 pg (27.0-31.0); MEAN CORPUSCULAR HGB CONC 30 g/dl (33.0-37.0); MEAN PLATELET VOLUME 9.8 fl (7.4-10.4); PLATELET COUNT 253 K/mm3 (130-400); RED BLOOD COUNT 4.09 M/mm3 (4.10-5.30); REDCELL DISTRIBUTION WIDTH-CV 21.7 % (11.5-14.5)
[2017-06-15 17:24] LABS: HEMOGLOBIN 11.9 g/dl (12.5-16.0)
[2017-06-15 17:27] LABS: INR 1.1 (0.8-3.0)
[2017-06-15 17:30] LABS: PARTIAL THROMBOPLASTIN TIME 34.5 SECONDS (26.0-37.0)
[2017-06-15 17:32] LABS: ALBUMIN 3.2 gm/dL (3.5-5.0); BILIRUBIN,TOTAL 0.8 mg/dL (0.0-1.0); CALCIUM 8.8 mg/dL (8.4-10.2); CREATININE, serum 0.74 mg/dL (0.52-1.25); POTASSIUM 4.2 mmol/L (3.4-5.0); TOTAL PROTEIN 5.8 gm/dL (6.4-8.2)
[2017-06-15 17:42] LABS: ANISOCYTOSIS 3+; BAND 4 % (0-10); BASOPHIL 2 % (0-2); HYPOCHROMIA 2+; LYMPHOCYTE 18 % (20.0-51.0); NEUTROPHILS 72 % (42.0-75.2)
[2017-06-15 17:43] LABS: PLATELET ESTIMATE NORMAL (NORMAL)
[2017-06-15 17:44] LABS: TROPONIN-I 0.032 ng/mL (0.000-0.034)
[2017-06-15] MEDS ORDERED: TYLENOL SU650 MG/SUP RC (19:24)
[2017-06-15] MEDS ORDERED: CALCIUM 600600 MG PO (19:25)
[2017-06-15] MEDS ORDERED: COENZYME Q-10200 M1 PO (19:25)
[2017-06-15] MEDS ORDERED: GENTLE LAXATIVE10 MG RC (19:25)
[2017-06-15] MEDS ORDERED: NATURAL C500 MG PO (19:25)
[2017-06-15] MEDS ORDERED: EPA FISH OIL1 SGL PO ×2 (19:26)
[2017-06-15] MEDS ORDERED: CRESTOR40 MG PO (19:26)
[2017-06-15] MEDS ORDERED: IMODIUM 2MG CAPS2 MG PO (19:27)
[2017-06-15] MEDS ORDERED: NEURONTIN300 MG/CAP PO (19:27)
[2017-06-15] MEDS ORDERED: GARLIC100 MG PO (19:27)
[2017-06-15] MEDS ORDERED: FLONASEALLERGY NS (19:27)
[2017-06-15] MEDS ORDERED: LEVEMIR100 U/ML SQ ×2 (19:28)
[2017-06-15] MEDS ORDERED: LASIX 40MG TABL40 MG PO (19:28)
[2017-06-15] MEDS ORDERED: LEVOXYL0.1 MG PO (19:29)
[2017-06-15] MEDS ORDERED: MELATONIN5 M1 SL (19:29)
[2017-06-15] MEDS ORDERED: PRINIVIL40 MG PO (19:29)
[2017-06-15] MEDS ORDERED: CLARITIN 1010 MG/TAB PO (19:29)
[2017-06-15] MEDS ORDERED: METAMUCIL3.4 GM/DOS PO (19:29)
[2017-06-15] MEDS ORDERED: MUCINEX 60600 MG/TA1 PO (19:30)
[2017-06-15] MEDS ORDERED: LOPRESSOR 550 MG/TAB PO (19:30)
[2017-06-15] MEDS ORDERED: MILK OF MA400 MG/52 (19:30)
[2017-06-15] MEDS ORDERED: ALMACONE 360 M360 ML PO (19:31)
[2017-06-15] MEDS ORDERED: NITROSTAT0.4 MG/TAB SL (19:31)
[2017-06-15] MEDS ORDERED: MULTI VITAMINS1 TAB PO (19:31)
[2017-06-15] MEDS ORDERED: NOVOLOG 100U100 U/M1 SQ (19:31)
[2017-06-15] MEDS ORDERED: TYLENOL 325MG325 MG PO (19:32)
[2017-06-15] MEDS ORDERED: VITAMIN D31000 I1 PO (19:32)
[2017-06-15] MEDS ORDERED: NYSTATIN OR100 MU/ML PO (19:32)
[2017-06-15] MEDS ORDERED: REFRESH TEARS 330 ML OP (19:32)
[2017-06-15 20:36] VITALS: BP 136/65; PULSE 90
== END 2017-06-15 21:13 | disposition home or self-care (01) ==
LOC: COL.ER 17:00
PROVIDERS: Family Medicine
DX: I50.9 Heart failure, unspecified (principal); I48.91 Unspecified atrial fibrillation; E11.649 Type 2 diabetes mellitus with hypoglycemia without coma; Z79.4 Long term (current) use of insulin
CPT/HCPCS: J1940

== ENCOUNTER → 2017-06-27 | Outpatient (REF) ==
[~2017-06-27] MED LIST changes: +ALMACONE 360 M360 ML PO; +CALCIUM 600600 MG PO; +CLARITIN 1010 MG/TAB PO; +COENZYME Q-10200 M1 PO; +EPA FISH OIL1 SGL PO; +FLONASEALLERGY NS; +GARLIC100 MG PO; +GENTLE LAXATIVE10 MG RC; +IMODIUM 2MG CAPS2 MG PO; +LEVEMIR100 U/ML SQ; +LEVOXYL0.1 MG PO; +MELATONIN5 M1 SL; +METAMUCIL3.4 GM/DOS PO; +MILK OF MA400 MG/52; +MULTI VITAMINS1 TAB PO; +NATURAL C500 MG PO; +NITROSTAT0.4 MG/TAB SL; +NOVOLOG 100U100 U/M1 SQ; +NYSTATIN OR100 MU/ML PO; +TYLENOL SU650 MG/SUP RC; +VITAMIN D31000 I1 PO
[2017-06-27 12:19] LABS: CALCIUM 8.7 mg/dL (8.4-10.2); CREATININE, serum 0.73 mg/dL (0.52-1.25); POTASSIUM 4.5 mmol/L (3.4-5.0)
== END ==
LOC: ZCOL.LAB 11:49
PROVIDERS: Internal Medicine
DX: E87.1 Hypo-osmolality and hyponatremia (principal); I10 Essential (primary) hypertension

== ENCOUNTER → 2017-07-05 | Outpatient (REF) ==
[2017-07-05 12:54] LABS: CALCIUM 8.7 mg/dL (8.4-10.2); CREATININE, serum 0.91 mg/dL (0.52-1.25); POTASSIUM 3.9 mmol/L (3.4-5.0)
== END ==
LOC: ZCOL.LAB 12:19
PROVIDERS: Internal Medicine
DX: I50.40 Unspecified combined systolic (congestive) and diastolic (congestive) heart failure (principal)

== ENCOUNTER → 2017-07-14 | Outpatient (CLI) | payer MEDICARE, BC | LOC: ZCOL.LAB 11:06 | DX: Z01.89 Encounter for other specified special examinations (principal) ==